=== PATIENT | female | born 2005 | race Caucasian/White ===

== ENCOUNTER 2023-06-05 16:46 | Emergency (ER) | payer MEDICAID ==
[~2023-06-05] VITALS: Ht 157.5 cm; Wt 68.0 kg
[2023-06-05 17:23] VITALS: BP_SYST 123; PULSE 69; RESP 16; TEMP 97.8; O2SAT 99
--- NOTE | 2023-06-05 17:29 | NUR ---
Placed in room 4 . Placed on school lunch monitor, blood pressure machine and pulse oximeter. To gown for exam. Side rails up. Report given to
--- NOTE | 2023-06-05 17:30 | NUR ---
RECEIVED PT FROM [facility]. ASSUMED CARE. PT BIB MOTHER DUE TO INCURRING RIGHT INDEX FINGER 3CM LACERATION. PT CUT FINGER ON BROKEN GLASS BOWL. BLEEDING CONTROLED. PT STATES PAIN IS 2/10. VSS. SIDERAILS UP X2.
--- NOTE | 2023-06-05 18:45 | NUR ---
DR. CABRERA AT BEDSIDE FOR EXAM.
[2023-06-05] MEDS ORDERED: DIPHTH,PERTUSS(ACELL),TET VAC 0.5 ML VIAL (Tdap) I.M. ONE (19:00)
--- NOTE | 2023-06-05 19:14 | NUR ---
PT ENDORSED TO [facility]. ALL QUESTIONS AND CONCERNS ADDRESSED.
[2023-06-05] MEDS ORDERED: BACITRACIN 1 GM OINT TP ONE (19:15)
--- NOTE | 2023-06-05 19:31 | NUR ---
DR. CABRERA AT BEDSIDE. PT FINGER WOUND CLEANSED WITH N/S, PATTED DRY, LIDOCAINE INJECTED SQ. 2 STICHES PLACED. BACITRACIN APPLIED AND BANDAID PLACED. TDAP GIVEN TO LEFT DELITOID COVERED WITH BAND AID. PT TOLERATED PROCEDURES WELL.
[2023-06-05 19:55] VITALS: BP_SYST 118; PULSE 68; RESP 18; TEMP 97.7; O2SAT 100
--- NOTE | 2023-06-05 19:55 | NUR ---
Patient given written and verbal discharge instructions and verbalizes understanding. ER MD discussed with patient the results and treatment provided. Patient in stable condition. ID arm band removed. Patient educated on pain management and to follow up with PMD. Pain Scale 0/10 Opportunity for questions provided and answered.
== END 2023-06-05 19:55 | disposition home or self-care (01) ==
LOC: SED 16:46
DX: S61.210A Laceration without foreign body of right index finger without damage to nail, initial encounter (principal); Z79.899 Other long term (current) drug therapy; W25.XXXA Contact with sharp glass, initial encounter; Y93.89 Activity, other specified; Y92.89 Other specified places as the place of occurrence of the external cause; Y99.8 Other external cause status
CPT/HCPCS: 90715; 99283

== ENCOUNTER 2023-06-12 11:01 | Emergency (ER) | payer MEDICAID ==
[~2023-06-12] VITALS: Ht 157.5 cm; Wt 68.0 kg
[2023-06-12 11:01] VITALS: BP_SYST 139; PULSE 109; RESP 17; TEMP 98.4; O2SAT 98
[2023-06-12] MEDS ORDERED: ALBUTEROL SULFATE 0.083% 2.5 MG/3 ML VIAL.NEB INH ONE (11:30)
[2023-06-12] MEDS ORDERED: ALBMDI INH (11:45)
[2023-06-12 12:24] VITALS: BP_SYST 139; PULSE 109; RESP 17; TEMP 98.4; O2SAT 98
== END 2023-06-12 12:25 | disposition home or self-care (01) ==
LOC: SED 11:01
DX: S61.210A Laceration without foreign body of right index finger without damage to nail, initial encounter (principal); J45.909 Unspecified asthma, uncomplicated; Z88.0 Allergy status to penicillin; Z79.899 Other long term (current) drug therapy; X58.XXXA Exposure to other specified factors, initial encounter; Y93.89 Activity, other specified; Y92.89 Other specified places as the place of occurrence of the external cause; Y99.8 Other external cause status
CPT/HCPCS: 94640; 99283; J7613

== ENCOUNTER 2023-10-01 09:43 | Emergency (ER) | payer MEDICAID ==
[~2023-10-01] VITALS: Ht 160 cm; Wt 68.0 kg
[~2023-10-01 09:43] MED LIST: ALBMDI INH
[2023-10-01 09:45] VITALS: BP_SYST 96; PULSE 89; RESP 18; TEMP 99.1; O2SAT 99
[2023-10-01] MEDS ORDERED: IBUP-1969 PO (10:58)
[2023-10-01 11:08] VITALS: BP_SYST 113; PULSE 89; RESP 18; TEMP 99.1; O2SAT 99
== END 2023-10-01 11:05 | disposition home or self-care (01) ==
LOC: SED 09:43
DX: S43.401A Unspecified sprain of right shoulder joint, initial encounter (principal); J45.909 Unspecified asthma, uncomplicated; Z88.0 Allergy status to penicillin; Z79.899 Other long term (current) drug therapy; W18.40XA Slipping, tripping and stumbling without falling, unspecified, initial encounter; Y93.89 Activity, other specified; Y92.89 Other specified places as the place of occurrence of the external cause; Y99.8 Other external cause status
CPT/HCPCS: 73030; 99283

== ENCOUNTER 2024-04-30 16:55 | Emergency (ER) | payer MEDICAID ==
[~2024-04-30] VITALS: Ht 157.5 cm; Wt 68.0 kg
[~2024-04-30 16:55] MED LIST changes: +IBUP-1969 PO
[2024-04-30 17:01] VITALS: BP_SYST 133; PULSE 104; RESP 18; TEMP 98.7; O2SAT 100
[2024-04-30 18:01] LABS: SERUM HCG (QUALITATIVE) NEGATIVE (NEGATIVE)
[2024-04-30 18:10] LABS: ALANINE AMINOTRANSFERASE 5 U/L (12-78); ANION GAP 8 (5-15); ASPARTATE AMINOTRANSFERASE 12 U/L (10-37); BILIRUBIN,DIRECT 0.1 mg/dL (0.0-0.3); CALCIUM 9.2 mg/dL (8.4-11.0); CARBON DIOXIDE 27 mmol/L (23-29); CHLORIDE 104 mmol/L (98-107); CREATININE 0.68 mg/dL (0.55-1.30); GFR AFRICAN AMERICAN 142 mL/min (>90); GFR NON AFRICAN-AMERICAN 117 mL/min (>90); GLUCOSE 109 mg/dL (74-106); LIPASE 27 U/L (16-77); POTASSIUM 3.9 mmol/L (3.5-5.1); SODIUM SERUM 139 mmol/L (136-145); TOTAL BILIRUBIN 0.4 mg/dL (0.0-1.0); TOTAL PROTEIN, SERUM 8.1 g/dL (6.4-8.3); UREA NITROGEN, BLOOD 10 mg/dL (8-21)
[2024-04-30 18:15] LABS: ALCOHOL, BLOOD < 3 mg/dL (<10)
[2024-04-30 18:18] LABS: BILIRUBIN,URINE NEGATIVE (NEGATIVE); BLOOD, URINE NEGATIVE (NEGATIVE); CLARITY/URINE CLEAR (CLEAR); COLOR,URINE YELLOW (YELLOW); GLUCOSE,URINE NEGATIVE (NEGATIVE); KETONES,URINE NEGATIVE (NEGATIVE); LEUKOCYTE ESTERASE ,URINE NEGATIVE (NEGATIVE); NITRITE, URINE NEGATIVE (NEGATIVE); PROTEIN URINE NEGATIVE (NEGATIVE); UROBILINOGEN,URINE 0.2 (0.2-1.0)
[2024-04-30 18:24] LABS: BASOPHILS # (AUTO) 0.1 K/uL (0.0-0.2); BASOPHILS % (AUTO) 1.3 % (0.0-2.0); EOSINOPHILS # (AUTO) 0.1 K/uL (0.0-0.4); EOSINOPHILS % (AUTO) 1.8 % (0.0-4.0); HEMATOCRIT 39.4 % (36-48); HEMOGLOBIN 13.6 g/dL (12.0-16.0); LYMPHOCYTES # (AUTO) 2.3 K/uL (1.0-5.5); LYMPHOCYTES % (AUTO) 31.9 % (20.5-51.5); MEAN CORPUSCULAR HEMOGLOBIN 31 pg (27-31); MEAN CORPUSCULAR HGB CONC 35 % (32-36); MEAN CORPUSCULAR VOLUME 89 fL (79.0-98.0); MONOCYTES # (AUTO) 0.3 K/uL (0.0-1.0); MONOCYTES % (AUTO) 4.7 % (1.7-9.3); NEUTROPHILS # (AUTO) 4.3 K/uL (1.8-7.7); NEUTROPHILS % (AUTO) 60.3 % (40.0-70.0); PLATELET COUNT (AUTO) 249 K/uL (130-430); RED BLOOD CELL COUNT(AUTO) 4.45 MIL/uL (4.2-6.2); RED CELL DISTRIBUTION WIDTH 13.1 % (9.0-15.0); WHITE BLOOD COUNT (AUTO) 7.1 K/uL (4.5-11.0)
[2024-04-30 18:29] LABS: BARBITURATE, URINE NEGATIVE (NEG <=200); BENZODIAZEPINE, URINE NEGATIVE (NEG <=150); CANNABINOID, URINE NEGATIVE (NEG <=50); COCAINE, URINE NEGATIVE (NEG <=150); METHAMPHETAMINES SCREEN,URINE NEGATIVE (NEG <=500); OPIATE, URINE POSITIVE (NEG <=100); PHENCYCLIDINE SCREEN,URINE NEGATIVE (NEG <=25); URINE AMPHETAMINE NEGATIVE (NEG <=500); URINE METHADONE NEGATIVE (NEG <=200); URINE OXYCODONE SCREEN NEGATIVE (NEG <=100)
[2024-04-30 18:30] LABS: UR TRICYCLIC ANTIDEPRESSANTS NEGATIVE (NEG <=300)
[2024-04-30] MEDS: KETOROLAC TROMETHAMINE 30 MG VIAL IM ONE (18:47)
[2024-04-30] MEDS ORDERED: DICY10SO PO (20:36)
[2024-04-30 20:47] VITALS: BP_SYST 128; PULSE 83; RESP 17; TEMP 98.6; O2SAT 99
== END 2024-04-30 20:47 | disposition home or self-care (01) ==
LOC: SED 16:55
DX: R10.13 Epigastric pain (principal); J45.909 Unspecified asthma, uncomplicated; F41.9 Anxiety disorder, unspecified; Z88.0 Allergy status to penicillin; Z88.1 Allergy status to other antibiotic agents; Z79.899 Other long term (current) drug therapy; Z79.2 Long term (current) use of antibiotics
CPT/HCPCS: 99285; 74176; 76705; 80307; 80076; 80048; 81001; 84703; 83690; 85025; 36415; 81025; 96372; G0482; J1885; 81003